=== PATIENT | male | born 1990 | race African-American/Black ===

== ENCOUNTER 2016-05-29 16:32 | Emergency (ER) | payer OTHER ==
[~2016-05-29] VITALS: Ht 180.3 cm; Wt 81.6 kg
[~2016-05-29 16:32] MED LIST: advair INH; albuterol INH
[2016-05-29 16:45] VITALS: BP 127/98
--- NOTE | 2016-05-29 17:22 | ED.ADGEN ---
Past History Past Medical History: No Pertinent History Past Surgical History: No Surgical History Smoking: Cigarettes Alcohol Use: Occasionally Drug Use: None Adult General Chief Complaint Chief Complaint Jaw pain HPI HPI Patient is a 26-year-old -[place] male with jaw fracture with screws and wire in place who presents with sided jaw pain after chewing on steak her to ED arrival. Patient reports feeling as though screws are aching in 2 gumline. Patient is being managed by oral maxillofacial surgeon and has an appointment next week. Denies increased swelling, bruising, fever, difficulty swallowing. Patient is currently out of oxycodone. No other acute symptoms or complaints. Review of Systems Review of Systems Review symptoms as per history of present illness. All other review symptoms are negative. Allergies Allergies Allergies Coded Allergies Type Severity Reaction Last Updated Verified No Known Drug Allergies 10/25/14 No Physical Exam Physical Exam Constitutional: Well developed, well nourished, no acute distress, non-toxic appearance. HENT: Normocephalic, atraumatic, bilateral external ears normal, oropharynx moist, metal screws and plates in place over lower mandible, gingival irritation around posterior screws without bleeding. Eyes: PERRLA, EOMI, conjunctiva normal, no discharge. Neck: Normal range of motion. Extremities: No tenderness, no cyanosis, no clubbing, ROM intact, no edema. [] Neurologic: Alert and oriented X 3, normal motor function, normal sensory function, no focal deficits noted. Psychologic: Affect normal, judgement normal, mood normal. EKG EKG [] Radiology/Procedures Radiology/Procedures [] Impressions: Encounter for evaluation of mandible fracture and hardware. Course & Med Decision Making Course & Med Decision Making Pertinent Labs and Imaging studies reviewed. (See chart for details) [No evidence of facial tissue infection. Pain medication prescribed. Patient instructed to follow strict gluten soft diet with oral maxillofacial follow-up next week as scheduled.] Final Impression Final Impression 1 Jaw fracture Problems: Dragon Disclaimer Dragon Disclaimer This electronic medical record was generated, in whole or in part, using a voice recognition dictation system. ARLINE FLOWERS DO May 29, 2016 17:22
== END 2016-05-29 17:25 | disposition home or self-care (01) ==
LOC: ER 16:32
DX: S02.609A Fracture of mandible, unspecified, initial encounter for closed fracture (principal); F17.210 Nicotine dependence, cigarettes, uncomplicated; X58.XXXA Exposure to other specified factors, initial encounter; Y93.9 Activity, unspecified; Y99.8 Other external cause status; Y92.89 Other specified places as the place of occurrence of the external cause
CPT/HCPCS: 99283

== ENCOUNTER 2017-02-05 18:50 | Emergency (ER) | payer OTHER ==
[~2017-02-05] VITALS: Ht 180.3 cm; Wt 110.2 kg
--- NOTE | 2017-02-05 18:59 | ED.ADGEN ---
Past History Past Medical History: URI, Other Past Surgical History: Other Smoking: Cigarettes Alcohol Use: Occasionally Drug Use: None Adult General Chief Complaint Chief Complaint " I am sick.. been coughing all the time.. sore throat.. running nose. .. fever.. chills. " HPI HPI Patient is a 26 year old male who presents with above hx and complaints of cough, chills, myalgia, malaise.. Pt. normally healthy. Pt. does have productive discolored sputum. No hx immunosuppression. No specific ill contacts. No Travel. . Does not follow with primary. Pt. has been ill the past week to ten days. Review of Systems Review of Systems Constitution Hx. fever or chills [] Eyes: Denies change in visual acuity, redness, or eye pain [] HENT: Hx. of nasal congestion and sore throat [] Respiratory: Hx cough and wheezing. Cardiovascular: No additional information not addressed in HPI [] GI: Denies abdominal pain, nausea, vomiting, bloody stools or diarrhea [] : Denies dysuria or hematuria [] Musculoskeletal: Denies back pain or joint pain [] Integument: Denies rash or skin lesions [] Neurologic: Denies headache, focal weakness or sensory changes [] Endocrine: Denies polyuria or polydipsia [] All other systems were reviewed and found to be within normal limits, except as documented in this note. Family History Family History Noncontributory Current Medications Current Medications Current Medications Medications (Trade) Dose Ordered Sig/Darleen Start Time Stop Time Status Last Admin Dose Admin Albuterol Sulfate (Ventolin Hfa) 2 puff 1X ONCE 02/05/17 19:30 02/05/17 19:31 DC 02/05/17 20:14 2 PUFF Azithromycin (Zithromax) 500 mg 1X ONCE 02/05/17 19:30 02/05/17 19:31 DC 02/05/17 19:30 500 MG Prednisone (Prednisone) 50 mg 1X ONCE 02/05/17 19:30 02/05/17 19:31 DC 02/05/17 20:14 50 MG Allergies Allergies Allergies Coded Allergies Type Severity Reaction Last Updated Verified No Known Drug Allergies 10/25/14 No Physical Exam Physical Exam Constitutional: Well developed, well nourished, mild distress, non-toxic appearance. [] HENT: Normocephalic, atraumatic, bilateral external ears normal, oropharynx moist injected, postnasal drainage, no oral exudates, nose swollen turbinates and rhinorrhea Eyes: PERRLA, EOMI, conjunctiva normal, no discharge. [] Neck: Normal range of motion, no tenderness, supple, no stridor. [] Cardiovascular:Heart rate regular rhythm, no murmur [] Lungs & Thorax: Bilateral breath sounds equal with scattered wheezes occasional episodes of coughing spasm . Abdomen: Bowel sounds normal, soft, no tenderness, no masses, no pulsatile masses. [] Skin: Warm, dry, no erythema, no rash. [] Back: No tenderness, no CVA tenderness. [] Extremities: No tenderness, no cyanosis, no clubbing, ROM intact, no edema. [] Neurologic: Alert and oriented X 3, normal motor function, normal sensory function, no focal deficits noted. [] Psychologic: Affect normal, judgement normal, mood normal. [] Current Patient Data Vital Signs Vital Signs Date Time Temp Pulse Resp B/P (MAP) Pulse Ox O2 Delivery O2 Flow Rate FiO2 02/05/17 19:02 97.6 95 20 135/75 (95) 95 Room Air EKG EKG [] Radiology/Procedures Radiology/Procedures [] Course & Med Decision Making Course & Med Decision Making Pertinent Labs and Imaging studies reviewed. (See chart for details). Gargle with Listerine 4 times a day. Take Benadryl 25-50 mg 4 times a day for drainage and cough. Take prednisone 50 mg a day for 5 days. Use MDI 2 puffs 4 times a day. Take Zithromax 250 mg a day for 5 days. Follow up primary care. Push fluids. Return if any concerns. [] Final Impression Final Impression 1. URI 2. Bronchitis[] Problems: Dragon Disclaimer Dragon Disclaimer This electronic medical record was generated, in whole or in part, using a voice recognition dictation system. GABRIELLA ELAINE MD Feb 05, 2017 18:59
[2017-02-05 19:02] VITALS: BP 135/75
[2017-02-05] MEDS ORDERED: PRED50TA PO (19:26)
[2017-02-05] MEDS ORDERED: AZIT250T PO (19:26)
[2017-02-05] MEDS ORDERED: AZITHROMYCIN 250 MG TABLET. PO ONE (19:30)
[2017-02-05] MEDS ORDERED: ALBUTEROL SULFATE 8GM INHALER. INH ONE (19:30)
[2017-02-05] MEDS ORDERED: predniSONE 10 MG TABLET PO ONE (19:30)
== END 2017-02-05 20:19 | disposition home or self-care (01) ==
LOC: ER 18:50
DX: J40 Bronchitis, not specified as acute or chronic (principal); J06.9 Acute upper respiratory infection, unspecified; F17.210 Nicotine dependence, cigarettes, uncomplicated
CPT/HCPCS: 94640; 99283; J0456; J7512; J7613

== ENCOUNTER 2018-04-12 15:34 | Emergency (ER) | payer OTHER ==
[~2018-04-12] VITALS: Ht 180.3 cm; Wt 108.9 kg
[~2018-04-12 15:34] MED LIST changes: +AZIT250T PO; +PRED50TA PO
[2018-04-12 15:38] VITALS: BP 123/98
[2018-04-12] MEDS ORDERED: AMOX500T PO (15:54)
[2018-04-12] MEDS ORDERED: MELO7.5T29 PO (15:54)
[2018-04-12] MEDS ORDERED: D-ME118S2 PO (15:54)
--- NOTE | 2018-04-12 15:55 | PHYS DOC ---
Past History Past Medical History: Asthma, Other (reports traumatic brain injury) Past Surgical History: No Surgical History Smoking: Cigarettes Alcohol Use: None Drug Use: None Adult General Chief Complaint Chief Complaint: DENTAL PROBLEM HPI HPI Patient is a 27year old male who presents with R upper tooth pain. The tooth broke off earlier today. He has taken no pain medicine. Nothing seems to make the tooth pain better or worse. He is also complaining of a sore throat that is been present for the past 4 days along with nasal congestion and a cough present for the same period of time. No fever. Patient reports that his asthma is under control with his medicines. He has not seen a doctor, he does not recall who his doctor is because of history of traumatic brain injury.[] Review of Systems Review of Systems Constitutional: Denies fever or chills [] Eyes: Denies change in visual acuity, redness, or eye pain [] HENT: See history of present illness[] Respiratory: Denies shortness of breath, reports cough [] Cardiovascular: No chest pain or palpitations[] GI: Denies abdominal pain, nausea, vomiting, bloody stools or diarrhea [] : Denies dysuria or hematuria [] Musculoskeletal: Denies back pain or joint pain [] Integument: Denies rash or skin lesions [] Neurologic: Denies headache, focal weakness or sensory changes [] Endocrine: Denies polyuria or polydipsia [] All other systems were reviewed and found to be within normal limits, except as documented in this note. Allergies Allergies Allergies Coded Allergies Type Severity Reaction Last Updated Verified No Known Drug Allergies 10/25/14 No Physical Exam Physical Exam Constitutional: Well developed, well nourished, no acute distress, non-toxic appearance. [] HENT: Normocephalic, atraumatic, bilateral external ears normal, oropharynx moist, no oral exudates, nose with clear rhinorrhea. Patient's tooth #18, there is tenderness to percussion, no drainable abscess. Do not see any bleeding from the tooth.. [] Eyes: PERRLA, EOMI, conjunctiva normal, no discharge. [] Neck: Normal range of motion, no tenderness, supple, no stridor. [] Cardiovascular:Heart rate regular rhythm, no murmur [] Lungs & Thorax: Bilateral breath sounds clear to auscultation [] Abdomen: Bowel sounds normal, soft, no tenderness, no masses, no pulsatile masses. [] Skin: Warm, dry, no erythema, no rash. [] Back: No tenderness, no CVA tenderness. [] Extremities: No tenderness, no cyanosis, no clubbing, ROM intact, no edema. [] Neurologic: Alert and oriented X 3, normal motor function, normal sensory function, no focal deficits noted. [] Psychologic: Affect normal, judgement normal, mood normal. [] Current Patient Data Vital Signs Vital Signs Date Time Temp Pulse Resp B/P (MAP) Pulse Ox O2 Delivery O2 Flow Rate FiO2 04/12/18 15:38 97.9 75 20 99 Room Air EKG EKG [] Radiology/Procedures Radiology/Procedures [] Course & Med Decision Making Course & Med Decision Making Pertinent Labs and Imaging studies reviewed. (See chart for details) Medical decision making: Patient appears to have some dental discomfort, possibly consistent with periapical abscess for which she will be treated with oral outpatient antibiotics. There is no tonsillar exudate however the treatment for the periapical abscess we'll cover for strep pharyngitis. And is not hypoxic, lungs were clear with no egophony, no tactile fremitus, so doubt pneumonia.[] Dragon Disclaimer Dragon Disclaimer This electronic medical record was generated, in whole or in part, using a voice recognition dictation system. Departure Departure: Impression: Primary Impression: Pain, dental Additional Impressions: Pharyngitis Upper respiratory infection Disposition: 01 HOME, SELF-CARE Condition: IMPROVED Referrals: PCP,NO (PCP) Patient Instructions: Dental Fracture, Upper Respiratory Infection, Adult, Viral and Bacterial Pharyngitis Additional Instructions: Drink plenty of fluids. Follow-up with your regular doctor in 2 days. If you do not have a regular doctor, list of local clinics will be given to you. Return to the ER if worsening pain, difficulty breathing, or any other concerns. Scripts D-Methorphan Hb/Prometh Hcl (PROMETHAZINE-DM SYRUP) 118 Ml Syrup 5 ML PO PRN Q4HRS for CONGESTION, #120 ML Prov: AYAN LEROY DO 04/12/18 Meloxicam (MELOXICAM) 7.5 Mg Tablet 7.5 MG PO DAILY for PAIN, #20 TAB Prov: AYAN LEROY DO 04/12/18 Amoxicillin (AMOXICILLIN) 500 Mg Tablet 1 TAB PO TID for dental pain, #30 TAB Prov: AYAN LEROY DO 04/12/18 Problem Qualifiers Additional Impressions: Pharyngitis Pharyngitis/tonsillitis etiology: unspecified etiology Qualified Codes: J02.9 - Acute pharyngitis, unspecified Upper respiratory infection URI type: unspecified URI Qualified Codes: J06.9 - Acute upper respiratory infection, unspecified AAYN LEROY DO Apr 12, 2018 15:54
== END 2018-04-12 15:58 | disposition home or self-care (01) ==
LOC: ER 15:34
DX: K08.89 Other specified disorders of teeth and supporting structures (principal); J02.9 Acute pharyngitis, unspecified; J45.909 Unspecified asthma, uncomplicated; F17.210 Nicotine dependence, cigarettes, uncomplicated; Z87.820 Personal history of traumatic brain injury
CPT/HCPCS: 99283

== ENCOUNTER 2018-08-21 12:42 | Emergency (ER) | payer OTHER ==
[~2018-08-21] VITALS: Ht 180.3 cm; Wt 104.3 kg
[~2018-08-21 12:42] MED LIST changes: +AMOX500T PO; +D-ME118S2 PO; +MELO7.5T29 PO
[2018-08-21 12:50] VITALS: BP 138/78
[2018-08-21] MEDS ORDERED: BENZ100C PO (13:33)
[2018-08-21] MEDS ORDERED: D-ME118S2 PO (13:33)
[2018-08-21] MEDS ORDERED: ALBU2.5V14 NEB (13:33)
--- NOTE | 2018-08-21 13:33 | PHYS DOC ---
Past History Past Medical History: Asthma, Bronchitis, Hypertension, Pneumonia Past Surgical History: Other Smoking: Cigarettes Alcohol Use: None Drug Use: None Adult General Chief Complaint Chief Complaint: SORE THROAT HPI HPI Patient is a 28-year-old male presents complaining of a cough. He was recently admitted and subsequently discharged from the hospital due to pneumonia. He was released 3 days ago. He reports having run out of his promethazine cough syrup. Also needing more of his nebulized breathing treatment to help with the cough. He reports that the medicines do improve the cough. Being out of them makes it worse. Symptoms are mild to moderate. Denies any fever. He finished his antibiotics today.[] Review of Systems Review of Systems Constitutional: Denies fever or chills [] Eyes: Denies change in visual acuity, redness, or eye pain [] HENT: Denies nasal congestion or ear pain[] Respiratory: Denies shortness of breath, see history of present illness [] Cardiovascular: No chest pain or palpitations[] GI: Denies abdominal pain, nausea, vomiting, bloody stools or diarrhea [] : Denies dysuria or hematuria [] Musculoskeletal: Denies back pain or joint pain [] Integument: Denies rash or skin lesions [] Neurologic: Denies headache, focal weakness or sensory changes [] Endocrine: Denies polyuria or polydipsia [] All other systems were reviewed and found to be within normal limits, except as documented in this note. Allergies Allergies Allergies Coded Allergies Type Severity Reaction Last Updated Verified No Known Drug Allergies 10/25/14 No Physical Exam Physical Exam Constitutional: Well developed, well nourished, no acute distress, non-toxic appearance. [] HENT: Normocephalic, atraumatic, bilateral external ears normal, oropharynx moist, no oral exudates, nose normal. [] Eyes: PERRLA, EOMI, conjunctiva normal, no discharge. [] Neck: Normal range of motion, no tenderness, supple, no stridor. [] Cardiovascular:Heart rate regular rhythm, no murmur [] Lungs & Thorax: Bilateral breath sounds clear to auscultation [] Abdomen: Bowel sounds normal, soft, no tenderness, no masses, no pulsatile masses. [] Skin: Warm, dry, no erythema, no rash. [] Back: No tenderness, no CVA tenderness. [] Extremities: No tenderness, no cyanosis, no clubbing, ROM intact, no edema. [] Neurologic: Alert and oriented X 3, normal motor function, normal sensory function, no focal deficits noted. [] Psychologic: Affect normal, judgement normal, mood normal. [] Current Patient Data Vital Signs Vital Signs Date Time Temp Pulse Resp B/P (MAP) Pulse Ox O2 Delivery O2 Flow Rate FiO2 08/21/18 12:50 97.5 98 18 98 Room Air EKG EKG [] Radiology/Procedures Radiology/Procedures [] Course & Med Decision Making Course & Med Decision Making Pertinent Labs and Imaging studies reviewed. (See chart for details) Medical decision making: I believe this to be a post-bronchitic/post pneumonic cough. Do not see any evidence of recurrence of infection at this time. We will treat with appropriate medicines to quiet down the cough. There is no evidence of hypoxia.[] Dragon Disclaimer Dragon Disclaimer This electronic medical record was generated, in whole or in part, using a voice recognition dictation system. Departure Departure: Impression: Primary Impression: Cough Disposition: 01 HOME, SELF-CARE Condition: IMPROVED Referrals: PCP,NO (PCP) Patient Instructions: Cough, Adult Additional Instructions: Drink plenty of fluids. Stop smoking if you have not yet done so. Follow-up with your regular doctor in 2 days. If you do not have regular doctor a list of local clinics will be provided for you. Return to the ER if worsening difficulty breathing or any other concerns. Scripts Benzonatate (TESSALON PERLE) 100 Mg Capsule 1 CAP PO TID for cough, #30 CAP Prov: AYAN LEROY DO 08/21/18 D-Methorphan Hb/Prometh Hcl (PROMETHAZINE-DM SYRUP) 118 Ml Syrup 5 ML PO PRN Q4HRS for CONGESTION, #120 ML Prov: AYAN LEROY DO 08/21/18 Albuterol Sulfate (ALBUTEROL SULFATE CONC NEB SOLN) 2.5 Mg/0.5 Ml Vial.neb 1 VIAL NEB Q6HRS for shortness of breath, #60 VIAL 0 Refills Prov: AYAN LEROY DO 08/21/18 AYAN LEROY DO Aug 21, 2018 13:33
== END 2018-08-21 13:50 | disposition home or self-care (01) ==
LOC: ER 12:42 → EDBD 12:42 → ER 13:50
DX: R05 Cough (principal); J45.909 Unspecified asthma, uncomplicated; I10 Essential (primary) hypertension; F17.210 Nicotine dependence, cigarettes, uncomplicated
CPT/HCPCS: 99283

== ENCOUNTER 2019-12-10 15:55 | Emergency (ER) | payer OTHER ==
[~2019-12-10] VITALS: Ht 180.3 cm; Wt 99.6 kg
[2019-12-10 15:55] VITALS: BP 143/113
[~2019-12-10 15:55] MED LIST changes: +ALBU2.5V14 NEB; +BENZ100C PO; -D-ME118S2 PO; +PROM118S10 PO
[2019-12-10] MEDS ORDERED: GUAI118L13 PO (17:00)
[2019-12-10] MEDS ORDERED: PRED-220 PO (17:00)
--- NOTE | 2019-12-10 17:00 | PHYS DOC ---
Past History Past Medical History: Asthma, Bronchitis, Hypertension, Pneumonia Past Surgical History: Other Smoking: Cigarettes Alcohol Use: None Drug Use: None General Adult EDM: Chief Complaint: COUGH HPI: HPI: 29-year-old male presents with cough. He has had nasal congestion and cough for at least last 3 days. The patient has moderate persistent asthma at baseline. He has been taking his medication but still has some mild shortness of breath. He has been tested for COVID-19 and was negative. He had pneumonia on the right side about 8 months ago. He typically gets bronchitis and/or an asthma exacerbation around this time of year. He just wants to get back to work. He does not believe he is had a fever at home. He has no other complaints at this time. Review of Systems: Review of Systems: Constitutional: Denies fever or chills Eyes: Denies change in visual acuity HENT: nasal congestion and sore throat Respiratory: Cough with mild shortness of breath Cardiovascular: Denies chest pain or edema GI: Denies abdominal pain, nausea, vomiting, bloody stools or diarrhea : Denies dysuria Musculoskeletal: Denies back pain or joint pain Integument: Denies rash Neurologic: Denies headache, focal weakness or sensory changes Endocrine: Denies polyuria or polydipsia Lymphatic: Denies swollen glands Psychiatric: Denies depression or anxiety Heart Score: Risk Factors: Risk Factors: DM, Current or recent (<one month) smoker, HTN, HLP, family history of CAD, obesity. Risk Scores: Score 0 - 3: 2.5% MACE over next 6 weeks - Discharge Home Score 4 - 6: 20.3% MACE over next 6 weeks - Admit for Clinical Observation Score 7 - 10: 72.7% MACE over next 6 weeks - Early Invasive Strategies Allergies: Allergies: Allergies Coded Allergies Type Severity Reaction Last Updated Verified No Known Drug Allergies 10/25/14 No Physical Exam: PE: Constitutional: Well developed, well nourished, no acute distress, non-toxic appearance. [] HENT: Normocephalic, atraumatic, bilateral external ears normal, oropharynx erythematous, no oral exudates, nose thick congestion. [] Eyes: PERRLA, EOMI, conjunctiva normal, no discharge. [] Neck: Normal range of motion, no tenderness, supple, no stridor. [] Cardiovascular:Heart rate regular rhythm, no murmur [] Lungs & Thorax: Bilateral end expiratory wheeze at the bases [] Abdomen: Bowel sounds normal, soft, no tenderness, no masses, no pulsatile masses. [] Skin: Warm, dry, no erythema, no rash. [] Back: No tenderness, no CVA tenderness. [] Extremities: No tenderness, no cyanosis, no clubbing, ROM intact, no edema. [] Neurologic: Alert and oriented X 3, normal motor function, normal sensory function, no focal deficits noted. [] Psychologic: Affect normal, judgement normal, mood normal. [] Current Patient Data: Vital Signs: Vital Signs Date Time Temp Pulse Resp B/P (MAP) Pulse Ox O2 Delivery O2 Flow Rate FiO2 12/10/19 15:55 97.9 80 26 143/113 (123) 97 Room Air EKG: EKG: [] Radiology/Procedures: Radiology/Procedures: [] Course & Med Decision Making: Course & Med Decision Making Pertinent Labs and Imaging studies reviewed. (See chart for details) The patient's chest x-ray is unremarkable. I think the patient is having an asthma exacerbation on top of a viral URI. I will treat him with guaifenesin with codeine and prednisone. I do not see signs of infection warranting antibiotics. He is stable for discharge at this time. [] Dragon Disclaimer: Tyler Disclaimer: This electronic medical record was generated, in whole or in part, using a voice recognition dictation system. Departure Departure: Impression: Primary Impression: Asthma exacerbation Qualified Codes: J45.41 - Moderate persistent asthma with (acute) exacerbation Additional Impression: Viral URI with cough Disposition: HOME/RESIDENCE PRIOR TO ADM Condition: STABLE Referrals: HARDY STEPHENS (PCP) Patient Instructions: Asthma, Adult, [id number] Scripts Prednisone (PREDNISONE) 10 Mg Tablet 50 MG PO DAILY for asthma for 3 Days, #15 TAB Prov: ARLINE MENSAH DO 12/10/19 Guaifenesin/Codeine Phosphate (GUAIFENESIN-CODEINE SYRUP) 118 Ml Liquid 5 ML PO Q6HRS PRN for COUGH, #120 ML Prov: ARLINE MENSAH DO 12/10/19 Justification of Admission: Justification of Admission: Justification of Admission Dx: N/A ARLINE MENSAH DO Dec 10, 2019 17:00
--- NOTE | 2019-12-10 17:16 | RAD ---
EXAM: CHEST PA LATERAL 12/10/2019 4:44 PM CLINICAL INDICATION: Cough COMPARISON: Chest radiograph 06/26/2014 TECHNIQUE: PA and lateral views of the chest FINDINGS: The heart and mediastinum are normal. Lungs are well-expanded and clear. No consolidation, pleural effusion, or pneumothorax. Pulmonary vascularity is normal. The thoracic skeleton is intact. IMPRESSION: Normal chest radiograph. Electronically signed by: Urmila Villanueva MD (12/10/2019 5:12 PM) [id number]
== END 2019-12-10 18:00 | disposition home or self-care (01) ==
LOC: ER 15:55
DX: J45.41 Moderate persistent asthma with (acute) exacerbation (principal); J06.9 Acute upper respiratory infection, unspecified; I10 Essential (primary) hypertension; F17.210 Nicotine dependence, cigarettes, uncomplicated
CPT/HCPCS: 71046; 99283

== ENCOUNTER 2020-01-03 20:14 | Emergency (ER) | payer OTHER ==
[~2020-01-03] VITALS: Ht 180.3 cm; Wt 86.0 kg
[~2020-01-03 20:14] MED LIST changes: +GUAI118L13 PO; +PRED-220 PO
[2020-01-03] MEDS ORDERED: IPRATRPIUM/ALBUTEROL 0.5/2.5MG 3 ML NEBU. NEB ONE (20:45)
--- NOTE | 2020-01-03 20:50 | PHYS DOC ---
Past History Past Medical History: Asthma (MOIRA PHILIPPE APRN) Past Surgical History: Other (MOIRA PHILIPPE APRN) Smoking: Cigarettes Alcohol Use: None Drug Use: None (MOIRA PHILIPPE APRN) Adult General Chief Complaint Chief Complaint: DENTAL PROBLEM HPI HPI Patient is a 29-year-old male patient presenting to the ED today complaining of right lower gum dental pain that has been going on follow-up 3 days. Patient denies any fever or trismus. He reports he broke broken tooth. Patient is also complaining of a cough from his asthma and is requesting a breathing treatment as well as liquid promethazine. Is also requesting something stronger for his tooth pain stating hydrocodone does not help him. (MOIRA PHILIPPE APRN) Review of Systems Review of Systems Constitutional: Denies fever or chills [] Eyes: Denies change in visual acuity, redness, or eye pain [] HENT: Reports dental pain. Denies nasal congestion or sore throat [] Respiratory: Reports cough from asthma, denies shortness of breath [] Musculoskeletal: Denies back pain or joint pain [] Integument: Denies rash or skin lesions [] Neurologic: Denies headache, focal weakness or sensory changes [] All other systems were reviewed and found to be within normal limits, except as documented in this note. (MOIRA PHILIPPE APRN) Current Medications Current Medications Current Medications Medications (Trade) Dose Ordered Sig/Darleen Start Time Stop Time Status Last Admin Dose Admin Albuterol/ Ipratropium (Duoneb) 3 ml 1X ONCE 01/03/20 20:45 01/03/20 20:46 UNV (MOIRA PHILIPPE APRN) Allergies Allergies Allergies Coded Allergies Type Severity Reaction Last Updated Verified No Known Drug Allergies 10/25/14 No (MOIRA PHILIPPE APRN) Physical Exam Physical Exam Constitutional: Well developed, well nourished, no acute distress, non-toxic appearance. [] HENT: Normocephalic, atraumatic, bilateral external ears normal, oropharynx moist, no oral exudates, nose normal. [] No obvious broken tooth noted, tooth #3 the patient is concerned about barely has any concerning issues. He does have a feeling on tooth #2. Eyes: PERRLA, EOMI, conjunctiva normal, no discharge. [] Neck: Normal range of motion, no tenderness, supple, no stridor. [] Cardiovascular:Heart rate regular rhythm, no murmur [] Lungs & Thorax: Bilateral breath sounds clear to auscultation [] Abdomen: Bowel sounds normal, soft, no tenderness, no masses, no pulsatile masses. [] Skin: Warm, dry, no erythema, no rash. [] Back: No tenderness, no CVA tenderness. [] Extremities: No tenderness, no cyanosis, no clubbing, ROM intact, no edema. [] Neurologic: Alert and oriented X 3, normal motor function, normal sensory function, no focal deficits noted. [] Psychologic: Affect normal, judgement normal, mood normal. [] (MOIRA PHILIPPE APRN) Current Patient Data Vital Signs Vital Signs Date Time Temp Pulse Resp B/P (MAP) Pulse Ox O2 Delivery O2 Flow Rate FiO2 01/03/20 20:18 96.5 86 18 130/99 (109) 97 Room Air (MOIRA PHILIPPE APRN) EKG EKG [] (MOIRA PHILIPPE APRN) Radiology/Procedures Radiology/Procedures [] (MOIRA PHILIPPE APRN) Heart Score Risk Factors: Risk Factors: DM, Current or recent (<one month) smoker, HTN, HLP, family history of CAD, obesity. Risk Scores: Risk Factors: DM, Current or recent (<one month) smoker, HTN, HLP, family history of CAD, obesity. (MOIRA PHILIPPE APRN) Course & Med Decision Making Course & Med Decision Making Pertinent Labs and Imaging studies reviewed. (See chart for details) This is a ten 9-year-old male patient presenting to the ED today complaining of dental pain as well as a cough from his asthma. Patient has spent an incredible amount of time trying to negotiate for some pain medicine as well as cough syrup. Informed patient he cannot have prescription cough syrup as well as prescription pain medicine. Recommended Ramy Rothman, he states he has dose under not working. He was requesting promethazine liquid, informed him he can take guaifenesin [id number]. He was instructed to follow-up with his own dentist (MOIRA PHILIPPE APRN) Course & Med Decision Making 29 year old male (ARLINE MENSAH DO) Tyler Disclaimer Dragon Disclaimer This electronic medical record was generated, in whole or in part, using a voice recognition dictation system. (MOIRA PHILIPPE APRN) Attending Co-Sign The patient was seen and interviewed as well as examined at the bedside. The chart was reviewed. The case was discussed. Agree with the plan of care. (ARLINE MENSAH DO) Departure Departure: Impression: Primary Impression: Cough Additional Impression: Pain, dental Disposition: 01 DC HOME SELF CARE/HOMELESS Condition: STABLE Referrals: HARDY STEPHENS (PCP) follow up as soon as possible Patient Instructions: Cough, Adult, Pyal-lh-Ostg, Dental Pain Additional Instructions: You were evaluated in the emergency room for cough. You can take tgjr-djw-hrvecyp cough medicines as needed. Please follow-up with your dentist as soon as possible dental pain. Scripts Benzonatate (BENZONATATE) 100 Mg Capsule 1 CAP PO TID, #30 CAP Prov: MOIRA PHILIPPE APRN 01/03/20 Naproxen (NAPROXEN) 500 Mg Tablet.dr 1 TAB PO BID, #60 TAB 1 Refill Prov: MOIRA PHILIPPE APRN 01/03/20 Amoxicillin (AMOXICILLIN) 500 Mg Tablet 1 TAB PO BID, #20 TAB Prov: MOIRA PHILIPPE APRN 20 Hydrocodone/Acetaminophen (Hydrocodone-Acetamin 5-325 mg) 1 Each Tablet 1 EACH PO Q6-8HRS PRN for PAIN, #6 TAB Prov: MOIRA PHILIPPE APRN 01/03/20 Problem Qualifiers MOIRA PHILIPPE APRN Jan 03, 2020 20:50 ARLINE MENSAH DO Jan 04, 2020 00:22
[2020-01-03] MEDS ORDERED: HYDR-2759 PO (20:57)
[2020-01-03] MEDS ORDERED: NAPR500T8 PO (20:57)
[2020-01-03] MEDS ORDERED: BENZ-8 PO (20:57)
[2020-01-03] MEDS ORDERED: AMOX500T PO (20:57)
[2020-01-03 21:00] VITALS: BP 128/92
[2020-01-03] MEDS ORDERED: ALBUTEROL SULFATE 8GM INHALER. INH ONE (21:30)
== END 2020-01-03 21:07 | disposition home or self-care (01) ==
LOC: ER 20:14
DX: K08.89 Other specified disorders of teeth and supporting structures (principal); R05 Cough; J45.909 Unspecified asthma, uncomplicated; F17.210 Nicotine dependence, cigarettes, uncomplicated; Z98.890 Other specified postprocedural states
CPT/HCPCS: 94640; 99283; J7613

== ENCOUNTER 2020-08-27 10:32 | Emergency (ER) | payer OTHER ==
[~2020-08-27] VITALS: Ht 180.3 cm; Wt 98.1 kg
[~2020-08-27 10:32] MED LIST changes: +BENZ-8 PO; +HYDR-2759 PO; +NAPR500T8 PO
[2020-08-27 10:40] VITALS: BP 148/78
[2020-08-27] MEDS ORDERED: CLIN300C9 PO (11:06)
[2020-08-27] MEDS ORDERED: HYDR-2759 PO (11:06)
--- NOTE | 2020-08-27 11:06 | PHYS DOC ---
Past History Past Medical History: Asthma Past Surgical History: Other Additional Past Surgical Histo: JAW REPAIR Smoking: Cigarettes Alcohol Use: None Drug Use: None General Adult EDM: Chief Complaint: DENTAL PROBLEM HPI: HPI: 30-year-old male presents with right lower dental pain and swelling. The patient has had issues with this tooth in the past. There is a section of it that is cracked and he has got an infection that resolved with antibiotics. He feels like the infection has come back as he has similar pain symptoms and swelling. He is having difficulty eating and sleeping. Nothing seems to make it better. He is without able to afford a dentist to have the tooth removed. He denies fever or chills. He has no other complaints at this time. Review of Systems: Review of Systems: Constitutional: Denies fever or chills Eyes: Denies change in visual acuity HENT: Dental pain Respiratory: Denies cough or shortness of breath Cardiovascular: Denies chest pain or edema GI: Denies abdominal pain, nausea, vomiting, bloody stools or diarrhea : Denies dysuria Musculoskeletal: Denies back pain or joint pain Integument: Denies rash Neurologic: Denies headache, focal weakness or sensory changes Endocrine: Denies polyuria or polydipsia Lymphatic: Denies swollen glands Psychiatric: Denies depression or anxiety Allergies: Allergies: Allergies Coded Allergies Type Severity Reaction Last Updated Verified No Known Drug Allergies 10/25/14 No Physical Exam: PE: Constitutional: Well developed, well nourished, no acute distress, non-toxic appearance. [] HENT: Normocephalic, atraumatic, bilateral external ears normal, oropharynx moist, no oral exudates, nose normal. Cracked tooth #30 with surrounding edema. No obvious abscess [] Eyes: PERRLA, EOMI, conjunctiva normal, no discharge. [] Neck: Normal range of motion, no tenderness, supple, no stridor. [] Cardiovascular: Heart rate regular rhythm, no murmur [] Lungs & Thorax: Bilateral breath sounds clear to auscultation [] Abdomen: Bowel sounds normal, soft, no tenderness, no masses, no pulsatile masses. [] Skin: Warm, dry, no erythema, no rash. [] Back: No tenderness, no CVA tenderness. [] Extremities: No tenderness, no cyanosis, no clubbing, ROM intact, no edema. [] Neurologic: Alert and oriented X 3, normal motor function, normal sensory function, no focal deficits noted. [] Psychologic: Affect normal, judgement normal, mood normal. [] Current Patient Data: Vital Signs: Vital Signs Date Time Temp Pulse Resp B/P (MAP) Pulse Ox O2 Delivery O2 Flow Rate FiO2 08/27/20 10:40 97.7 84 20 148/78 (101) 98 Room Air EKG: EKG: [] Radiology/Procedures: Radiology/Procedures: [] Heart Score: C/O Chest Pain: N/A Risk Factors: Risk Factors: DM, Current or recent (<one month) smoker, HTN, HLP, family history of CAD, obesity. Risk Scores: Score 0 - 3: 2.5% MACE over next 6 weeks - Discharge Home Score 4 - 6: 20.3% MACE over next 6 weeks - Admit for Clinical Observation Score 7 - 10: 72.7% MACE over next 6 weeks - Early Invasive Strategies Course & Med Decision Making: Course & Med Decision Making Pertinent Labs and Imaging studies reviewed. (See chart for details) The patient believes he was on amoxicillin last time. I will place him on clindamycin this time for 7 days. I checked the narcotic tracking database and the patient last got medication in June as he told me from his PCP. I will give him a short course of [place] 5/325. He is stable for discharge at this time. [] Tyler Disclaimer: Tyler Disclaimer: This electronic medical record was generated, in whole or in part, using a voice recognition dictation system. Departure Departure: Impression: Primary Impression: Pain, dental Additional Impression: Infected tooth Disposition: HOME / SELF CARE / HOMELESS Condition: STABLE Referrals: HARDY STEPHENS (PCP) Patient Instructions: Dental Pain, Ncfv-al-Lgas Scripts Clindamycin Hcl (CLINDAMYCIN HCL) 300 Mg Capsule 1 CAP PO TID for dental infection, #21 CAP Prov: ARLINE MENSAH DO 08/27/20 Hydrocodone/Acetaminophen (Hydrocodone-Acetamin 5-325 mg) 1 Each Tablet 1 EACH PO Q4-6HRS PRN for PAIN, #10 TAB Prov: ARLINE MENSAH DO 08/27/20 ARLINE MENSAH DO Aug 27, 2020 11:06
[2020-08-27] MEDS ORDERED: HYDROcodone/APAP 5/325MG 1 TAB TABLET PO ONE (11:15)
== END 2020-08-27 11:20 | disposition home or self-care (01) ==
LOC: ER 10:32
DX: K04.7 Periapical abscess without sinus (principal); K03.81 Cracked tooth; J45.909 Unspecified asthma, uncomplicated; F17.210 Nicotine dependence, cigarettes, uncomplicated
CPT/HCPCS: 99283

== ENCOUNTER 2020-09-19 12:17 | Emergency (ER) | payer OTHER ==
[~2020-09-19] VITALS: Ht 180.3 cm; Wt 98.1 kg
[~2020-09-19 12:17] MED LIST changes: +CLIN300C9 PO
[2020-09-19 12:31] VITALS: BP 149/102
--- NOTE | 2020-09-19 12:57 | PHYS DOC ---
Past History Past Medical History: Asthma Past Surgical History: Other Additional Past Surgical Histo: JAW REPAIR Smoking: Cigarettes Alcohol Use: None Drug Use: None General Adult EDM: Chief Complaint: DENTAL PROBLEM HPI: HPI: 30 yo F PMH asthma and left mandibular fracture in 2017, presents to the ed with c/o right lower jaw pain stating he was chewing last night when he heard a pop and states "Is it broken?" Denies any blunt injury to his jaw, no head/neck/facial injury or LOC. States he was seen in [place] at dental office and surgery was not an option given prior fracture? EMR was reviewed, CT maxillofaxial in 2017 w/nondisplaced left mandibular ramus fracture. Patient was seen in the ED on August 27 for similar pain, concerning for infection. Was treated with clindamycin for 7 days and [place]. ED note reports patient is unable to afford dental treatment. Review of Systems: Review of Systems: Constitutional: Denies fever or chills Eyes: Denies change in visual acuity HENT: Denies nasal congestion or sore throat Respiratory: Denies cough or shortness of breath Cardiovascular: Denies chest pain or edema GI: Denies nausea, vomiting, Musculoskeletal: Denies back pain or joint pain Integument: Denies rash or diaphoresis Neurologic: Denies headache or neck pain Psychiatric: Denies depression or anxiety Allergies: Allergies: Allergies Coded Allergies Type Severity Reaction Last Updated Verified No Known Drug Allergies 10/25/14 No Physical Exam: PE: Constitutional: Well developed, well nourished, no acute distress, non-toxic appearance. HENT: Normocephalic, atraumatic, tooth #38 with more than 50% dental decay-no bleeding or pulp visualized/no open socket (consider bunn tpe 2 fracture), able to bear down and hold tongue depressor between left and right jaw, no malocclusion, no palpable clicks at either tmj, no tongue elevation, opens mouth wide w/o distress, no tongue elevation or speech changes, no drooling, no submental pain, no cheek or soft tissue swelling Eyes: EOMI, conjunctiva normal, no discharge. Neck: Normal range of motion, supple, no nuchal rigidity or meningismus Cardiovascular: S1/2 present, regular rhythm Lungs & Thorax: Speaking in full sentences, bilateral equal chest rise, no tachypnea or increased work of breathing, no spitting, airway protected Skin: Warm, dry, no erythema, no rash. [] Extremities: No tenderness, no cyanosis, Neurologic: Alert and oriented X 3, normal motor function, normal sensory function, no focal deficits noted. [] Psychologic: Affect normal, judgement normal, mood normal. [] Current Patient Data: Vital Signs: Vital Signs Date Time Temp Pulse Resp B/P (MAP) Pulse Ox O2 Delivery O2 Flow Rate FiO2 09/19/20 12:31 88 18 149/102 98 EKG: EKG: [] Radiology/Procedures: Radiology/Procedures: IMAGING REPORT Signed PATIENT: DOC ROD V ACCOUNT: [id number] : 1990 LOCATION: ER AGE: 30 SEX: M EXAM STATUS: REG ER ORD. PHYSICIAN: QI KNOX DO REASON: right lower jaw pain, h/o fracture 2016 PROCEDURE: CT MAXILLOFACIAL WO CONTRAST Exam performed: CT maxillofacial. Indication: Right lower abdominal pain, history of fractured 2017. Date of service: 09/19/2020,Comparison: CT head and maxillofacial from 05/31/2016 Technique: Contiguous acquisitions are obtained through the maxillofacial structures without IV contrast. Coronal reformatted images are obtained and reviewed. Findings: There is normal aeration of both frontal, ethmoid, maxillary and sphenoid sinuses. No air-fluid level, mucoperiosteal thickening or mucus retention cyst is identified. The bony orbital margins and the intraocular contents are bilaterally symmetric and unremarkable. Both ostiomeatal complexes are preserved. Nasal bones and zygomatic arches are preserved.No abnormal fluid collections or hematoma formation seen. The visualized portion of the brain is normal. Impression: 1. No acute abnormality seen. Previously seen nondisplaced fractures left ramus of mandible is no longer visualized PQRS Compliance Statement: One or more of the following individualized dose reduction techniques were utilized for this examination: 1. Automated exposure control 2. Adjustment of the mA and/or kV according to patient size 3. Use of iterative reconstruction technique Electronically signed by: Mariaelena Reynolds MD (09/19/2020 2:23 PM) [facility] DICTATED AND SIGNED BY: MARIAELENA REYNOLDS MD DATE: 09/19/20 1410 CC: HARDY STEPHENS; ABILIOQI DO ~MTH0 0 Heart Score: C/O Chest Pain: No Risk Factors: Risk Factors: DM, Current or recent (<one month) smoker, HTN, HLP, family history of CAD, obesity. Risk Scores: Score 0 - 3: 2.5% MACE over next 6 weeks - Discharge Home Score 4 - 6: 20.3% MACE over next 6 weeks - Admit for Clinical Observation Score 7 - 10: 72.7% MACE over next 6 weeks - Early Invasive Strategies Course & Med Decision Making: Course & Med Decision Making Pertinent Labs and Imaging studies reviewed. (See chart for details) Concern for chronic dental plain, similar symptoms as seen in ED on August 27. Patient with large dental annette over right lower first molar, tooth #30, no pulp visualized, no active bleeding. No speech changes, tongue elevated or active distress. Will treat with antibiotics, Orajel and recommend urgent dental follow-up. Patient states he has established dental care with [place] [facility]. On reevaluation patient requesting stronger pain medication "other than, tylenol, motrin, [id number]-vet-[id number]," medications. Pt declines orajel or hurricane spray and IM toradol in ed. Myself and charge nurse educated on analgesia options, that narcotics are not indicated for chronic dental pain, pt continued to request tramadol (was prescribed ten tablets of hydrocodone 3 weeks ago). Pt states "I could just go to my family physician for tramadol then?" I referred patient to primary care physician for narcotic medication. CT imaging with no signs of acute trauma. Patient afebrile, hemodynamically stable, speaking full sentences with no jaw malocclusion. Will discharge home with strict ED return precautions were given for []. Encouraged urgent outpatient follow-up with PMD, dental clinic list provided. Life-threatening processes were considered but are low suspicion at this time, given history, physical exam and ED workup. Pt was educated on all prescription medications and adverse effects. All patient's questions were answered and pt was stable at time of discharge. Life/limb-threatening differential includes but is not limited to, Jarocho's angina, infection (periodontal or peritonsillar abscess, retropharyngeal abscess, Vincents angina, ANUG, pharyngeal/manager project management/buccal space infection), trauma or fracture, dental fracture/subluxation/avulsion, dental bleeding or hemorrhage/DIC, pulpitis, alveolar osteitis or neoplasm I have spoken with the patient and/or caregivers. I explained the patient's condition, diagnoses and treatment plan based on the information available to me at this time. I have answered the patient and/or caregiver's questions and addressed any concerns. The patient and/or caregivers have a good understanding of patient's diagnosis, condition and treatment plan as can be expected at this point. Vital signs have been stable. Patient's condition is stable and appropriate for discharge from the emergency department. Patient will pursue further outpatient evaluation with primary care physician or other designated or consulting physician as outlined in the discharge instructions. The patient and/or caregivers are agreeable to this plan of care and follow-up instructions have been explained in detail. The patient and/or caregivers have received these instructions in written form and have expressed an understanding of the discharge instructions. The patient and/or caregivers are aware that any significant change of condition or worsening of symptoms should prompt immediate return to this or the closest emergency department or call to 911Rosetta Scott Disclaimer: Tyler Disclaimer: This electronic medical record was generated, in whole or in part, using a voice recognition dictation system. Departure Departure: Impression: Primary Impression: Chronic dental pain Additional Impression: Dental caries extending into dentine Disposition: 01 HOME / SELF CARE / HOMELESS Condition: STABLE Referrals: HARDY STEPHENS (PCP) for routine care in 1 week Patient Instructions: Benzocaine mouth gel, ointment, solution, or dental paste, Dental Abscess, Dental Pain Additional Instructions: [facility] EMERGENCY DEPARTMENT GENERAL DISCHARGE INSTRUCTIONS Thank you for coming to [facility] (ED) today and trusting us with you care. We trust that you had a positivie experience in our Emergency Department. If you wish to speak to the department management, you may call the director at [phone]. YOUR FOLLOW UP INSTRUCTIONS ARE FOLLOWS: 1. Do you have a private Doctor? If you do not have a private doctor, please ask for a resource list of physicians or clinics that may be able to assist you with follow up care. 2. The Emergency Physician has interpreted your x-rays. The X-Ray specialist will also review them. If there is a change in the findings, you will be notified in 48 hours when at all possible. 3. A lab test or culture has been done, your results will be reviewed and you will be notified if you need a change in treatment. ADDITIONAL INSTRUCTIONS AND INFORMATION: 1. Your care today has been supervised by a physician who is specially trained in emergency care. Many problems require more than one evaluation for a complete diagnosis and treatment. We recommend that you schedule your follow up appointment as recommended to ensure complete treatment of you illness or injury. If you are unable to obtain follow up care and continue to have a problem, or if your condition worsens, we recommend that you return to the ED. 2. We are not able to safely determine your condition over the phone nor are we able to give sound medical advice over the phone. For these safety reasons, if you call for medical advice we will ask you to come to the ED for further evaluation. 3. If you have any questions regarding these discharge instructions please call the ED at [phone]. SAFETY INFORMATION: In the interest of safety, wellness, and injury prevention; we encourage you to wear your sealbelt, if you smoke; quite smoking, and we encourage family to use a protective helmet for bicycling and other sporting events that present an increased risk for head injury. IF YOUR SYMPTOMS WORSEN OR NEW SYMPTOMS DEVELOP, OR YOU HAVE CONCERNS ABOUT YOUR CONDITION; OR IF YOUR CONDITION WORSENS WHILE YOU ARE WAITING FOR YOUR FOLLOW UP APPOINTMENT; EITHER CONTACT YOUR PRIMARY CARE DOCTOR, THE PHYSICIAN WHOSE NAME AND NUMBER YOU WERE GIVEN, OR RETURN TO THE ED IMMEDIATELY. QI DEMPSEY DO Sep 19, 2020 12:57
--- NOTE | 2020-09-19 14:25 | RAD ---
Exam performed: CT maxillofacial. Indication: Right lower abdominal pain, history of fractured 2017. Date of service: 09/19/2020,Comparison: CT head and maxillofacial from 05/31/2016 Technique: Contiguous acquisitions are obtained through the maxillofacial structures without IV contr ast. Coronal reformatted images are obtained and reviewed. Findings: There is normal aeration of both frontal, ethmoid, maxillary and sphenoid sinuses. No air-fluid leve l, mucoperiosteal thickening or mucus retention cyst is identified. The bony orbital margins and the intraocular contents are bilaterally symmetric and unremarkable. Both ostiomeatal complexes are pres erved. Nasal bones and zygomatic arches are preserved.No abnormal fluid collections or hematoma form ation seen. The visualized portion of the brain is normal. Impression: 1. No acute abnormality seen. Previously seen nondisplaced fractures left ramus of mandible is no areli triston visualized PQRS Compliance Statement: One or more of the following individualized dose reduction techniques were utilized for this examinat ion: 1. Automated exposure control 2. Adjustment of the mA and/or kV according to patient size 3. Use of iterative reconstruction technique Electronically signed by: Mariaelena Reynolds MD (09/19/2020 2:23 PM) [facility]
[2020-09-19] MEDS ORDERED: KETOROLAC 30 MG/ML VIAL. IM ONE (14:45)
== END 2020-09-19 15:15 | disposition home or self-care (01) ==
LOC: ER 12:17
DX: K02.9 Dental caries, unspecified (principal); G89.29 Other chronic pain; J45.909 Unspecified asthma, uncomplicated; F17.210 Nicotine dependence, cigarettes, uncomplicated
CPT/HCPCS: 70486; 99284-25

== ENCOUNTER 2020-12-30 15:34 | Emergency (ER) | payer OTHER ==
[~2020-12-30] VITALS: Ht 180.3 cm; Wt 98.1 kg
[~2020-12-30 15:34] MED LIST changes: +CLIN-95 PO; -CLIN300C9 PO
--- NOTE | 2020-12-30 16:43 | PHYS DOC ---
Past History Past Medical History: Asthma (SHAHLA ALEGRIA APRN) Past Surgical History: Other Additional Past Surgical Histo: JAW REPAIR (SHAHLA ALEGRIA APRN) Smoking: Cigarettes Alcohol Use: None Drug Use: None (SHAHLA ALEGRIA APRN) General Adult EDM: Chief Complaint: COUGH HPI: HPI: Patient is a 30-year-old male who presents to the emergency department for a productive cough and sore throat x2 weeks. Patient reports that his entire family was sick with similar symptoms. He reports that he tested negative for COVID-19 3 weeks ago. No treatment prior to arrival. Patient has a history of asthma. Patient states "I think I have bronchitis". Patient denies shortness of breath, chest pain, fevers, vomiting, loss of taste or smell. (SHAHLA ALEGRIA APRN) Review of Systems: Review of Systems: 14 body systems of the review of systems have been reviewed. See HPI for pertinent positive and negative responses, otherwise all other systems are negative, nonpertinent or noncontributory (SHAHLA ALEGRIA APRN) Allergies: Allergies: Allergies Coded Allergies Type Severity Reaction Last Updated Verified No Known Drug Allergies 10/25/14 No (SHAHLA ALEGRIA APRN) Physical Exam: PE: Constitutional: Well developed, well nourished, no acute distress, non-toxic appearance. [] HENT: Normocephalic, atraumatic, bilateral external ears normal, erythematous oropharynx, no tonsillar enlargement, no drooling, uvula midline, no trismus, no phonation changes, oropharynx moist, no oral exudates, nose normal. [] Eyes: PERRL, EOMI, conjunctiva normal, no discharge. [] Neck: Normal range of motion, no stridor Cardiovascular:Heart rate regular rhythm, no murmur [] Lungs & Thorax: Bilateral breath sounds clear to auscultation [] Abdomen: Soft and flat Skin: Warm, dry, no erythema, no rash. [] Back: Normal range of motion Extremities: No tenderness, no cyanosis, no clubbing, ROM intact, no edema. [] Neurologic: Alert and oriented X 3, normal motor function, normal sensory function, no focal deficits noted. [] Psychologic: Affect normal, judgement normal, mood normal. [] (SHAHLA ALEGRIA APRN) EKG: EKG: [] (SHAHLA ALEGRIA APRN) Radiology/Procedures: Radiology/Procedures: []PROCEDURE: CHEST AP ONLY Site ID: [id number] EXAMINATION: XR CHEST 1V. HISTORY: 30 years Male Reason: COUGH / Spl. Instructions: / History: . . COMPARISON: December 10, 2019. Findings: The lungs are clear. The heart size is normal. There is no effusion or pneumothorax. The mediastinum and connie appear unremarkable. Impression: Unremarkable study. Electronically signed by: Dion Ballard MD (12/30/2020 4:56 PM) [id number] DICTATED AND SIGNED BY: DION BALLARD MD DATE: 12/30/201655 CC: SHAHLA ALEGRIA APRN; HARDY STEPHENS ~MTH0 0 (SHAHLA ALEGRIA APRN) Heart Score: C/O Chest Pain: N/A Risk Factors: Risk Factors: DM, Current or recent (<one month) smoker, HTN, HLP, family history of CAD, obesity. Risk Scores: Score 0 - 3: 2.5% MACE over next 6 weeks - Discharge Home Score 4 - 6: 20.3% MACE over next 6 weeks - Admit for Clinical Observation Score 7 - 10: 72.7% MACE over next 6 weeks - Early Invasive Strategies (SHAHLA ALEGRIA APRN) Course & Med Decision Making: Course & Med Decision Making Pertinent Labs and Imaging studies reviewed. (See chart for details) Patient presents to the emergency department for a productive cough and sore throat x2 weeks. Patient was tested for strep throat and it was positive. A chest x-ray was performed that was negative for any acute findings. He was tested for COVID-19 in the ER will be notified via telephone of those results when they become available. Patient advised to self isolate until he receives these results. Patient has a history of asthma was treated with a DuoNeb. Patient be discharged home with cough medication. He was advised to follow-up with his primary care provider. He was advised to continue his asthma medications at home. I discussed with patient all findings and diagnostic testing as well as the need to follow-up with PCP for further evaluation and treatment or return to the ER if any new or worsening symptoms. Strict return precautions were also discussed at length. Patient voiced understanding and agreement with the plan. Patient is hemodynamically stable at the time of disposition. (SHAHLA ALEGRIA APRN) Dragon Disclaimer: Dragon Disclaimer: This electronic medical record was generated, in whole or in part, using a voice recognition dictation system. (SHAHLA ALEGRIA APRN) Attending Co-Sign The patient was seen and interviewed as well as examined at the bedside. The chart was reviewed. The case was discussed. Agree with the plan of care. (ARLINE MENSAH DO) Departure Departure: Impression: Primary Impression: Person under investigation for COVID-19 Additional Impression: Strep pharyngitis Disposition: HOME / SELF CARE / HOMELESS Condition: GOOD Referrals: HARDY STEPHENS (PCP) Patient Instructions: Strep Throat Additional Instructions: You were seen in the emergency department today for cough and a sore throat. Your rapid strep test in the emergency department was positive. You will be treated with an antibiotic. Please start and finish it completely. You can take Tylenol and ibuprofen for pain at home. Salt water gargles may help with your throat pain. Please get a new toothbrush to avoid reinfection. You were tested in the emergency department today for COVID-19. You will be notified via telephone of your results in approximately 2 days when they become available. Please self isolate until you receive these results. Follow-up with your primary care provider within the week if your symptoms persist. Return to the emergency department if you develop shortness of breath, chest pain, inability to swallow, intractable nausea or vomiting, high fevers refractory to treatment or any new or worsening concerns. EMERGENCY DEPARTMENT GENERAL DISCHARGE INSTRUCTIONS Thank you for coming to [facility] (ED) today and trusting us with you care. We trust that you had a positivie experience in our Emergency Department. If you wish to speak to the department management, you may call the director at [phone]. YOUR FOLLOW UP INSTRUCTIONS ARE FOLLOWS: 1. Do you have a private Doctor? If you do not have a private doctor, please ask for a resource list of physicians or clinics that may be able to assist you with follow up care. 2. The Emergency Physician has interpreted your x-rays. The X-Ray specialist will also review them. If there is a change in the findings, you will be notified in 48 hours when at all possible. 3. A lab test or culture has been done, your results will be reviewed and you will be notified if you need a change in treatment. ADDITIONAL INSTRUCTIONS AND INFORMATION: 1. Your care today has been supervised by a physician who is specially trained in emergency care. Many problems require more than one evaluation for a complete diagnosis and treatment. We recommend that you schedule your follow up appointment as recommended to ensure complete treatment of you illness or injury. If you are unable to obtain follow up care and continue to have a problem, or if your condition worsens, we recommend that you return to the ED. 2. We are not able to safely determine your condition over the phone nor are we able to give sound medical advice over the phone. For these safety reasons, if you call for medical advice we will ask you to come to the ED for further evaluation. 3. If you have any questions regarding these discharge instructions please call the ED at [phone]. SAFETY INFORMATION: In the interest of safety, wellness, and injury prevention; we encourage you to wear your sealbelt, if you smoke; quite smoking, and we encourage family to use a protective helmet for bicycling and other sporting events that present an increased risk for head injury. IF YOUR SYMPTOMS WORSEN OR NEW SYMPTOMS DEVELOP, OR YOU HAVE CONCERNS ABOUT YOUR CONDITION; OR IF YOUR CONDITION WORSENS WHILE YOU ARE WAITING FOR YOUR FOLLOW UP APPOINTMENT; EITHER CONTACT YOUR PRIMARY CARE DOCTOR, THE PHYSICIAN WHOSE NAME AND NUMBER YOU WERE GIVEN, OR RETURN TO THE ED IMMEDIATELY. Scripts Promethazine HCl/Codeine (Prometh-Codein 6.25-10 mg/5 ml) 5 Ml Syrup 5 ML PO PRN Q4-6HRS PRN for cough MDD 30 Milliliter(s), #120 ML 0 Refills Prov: SHAHLA ALEGRIA APRN 12/30/20 Amoxicillin (AMOXICILLIN) 500 Mg Capsule 1 CAP PO BID for strep throat for 10 Days, #20 CAP 0 Refills Prov: SHAHLA ALEGRIA APRN 12/30/20 SHAHLA ALEGRIA APRN Dec 30, 2020 16:43 ARLINE MENSAH DO Dec 31, 2020 05:55
[2020-12-30] MEDS ORDERED: IPRATRPIUM/ALBUTEROL 0.5/2.5MG 3 ML NEBU. NEB ONE (16:45)
--- NOTE | 2020-12-30 16:59 | RAD ---
Site ID: [id number] EXAMINATION: XR CHEST 1V. HISTORY: 30 years Male Reason: COUGH / Spl. Instructions: / History: . . COMPARISON: December 10, 2019. Findings: The lungs are clear. The heart size is normal. There is no effusion or pneumothorax. The mediastinum and connie appear unremarkable. Impression: Unremarkable study. Electronically signed by: Noe Ballard MD (12/30/2020 4:56 PM) [id number]
[2020-12-30 17:51] VITALS: BP 147/106
[2020-12-30] MEDS ORDERED: AMOX500C PO (18:04)
[2020-12-30] MEDS ORDERED: PROM5SYR2 PO (18:45)
== END 2020-12-30 18:46 | disposition home or self-care (01) ==
LOC: ER 15:34
DX: J02.8 Acute pharyngitis due to other specified organisms (principal); J45.909 Unspecified asthma, uncomplicated; Z20.822 Contact with and (suspected) exposure to COVID-19
CPT/HCPCS: 71045; 94640; 99284; C9803; U0003

== ENCOUNTER 2021-03-11 13:54 | Emergency (ER) | payer OTHER ==
[~2021-03-11] VITALS: Ht 180.3 cm; Wt 102.2 kg
[~2021-03-11 13:54] MED LIST changes: +AMOX500C PO; +PROM5SYR2 PO
[2021-03-11] MEDS ORDERED: AMOX1TAB61 PO (15:04)
[2021-03-11] MEDS ORDERED: PROM5SYR2 PO (15:04)
[2021-03-11] MEDS ORDERED: BENZ-8 PO (15:04)
[2021-03-11] MEDS ORDERED: ALBU2.5V8 IH (15:04)
[2021-03-11] MEDS ORDERED: PRED50TA PO (15:04)
--- NOTE | 2021-03-11 15:06 | PHYS DOC ---
Past History Past Medical History: Asthma Additional Past Medical Histor: PTSD; ADHD; brain bleed (MOIRA PHILIPPE Nitza MEDICAL ADMINISTRATIVE SPECIALIST) Past Surgical History: Other Additional Past Surgical Histo: JAW REPAIR (CAMERONMOIRA Dominguez MEDICAL ADMINISTRATIVE SPECIALIST) Smoking: Cigarettes Alcohol Use: None Drug Use: None (JOSE MARTINMOIRA MEDICAL ADMINISTRATIVE SPECIALIST) Adult General Chief Complaint Chief Complaint: CONGESTION HPI HPI Patient is a 30-year-old male patient presenting to the ED today complaining of cough, nasal congestion, symptoms began 2 weeks ago. Patient states the nasal congestion has gotten worse with difficulty breathing from the left nasal cavity, he also states he has sore throat since yesterday. He states he was started on a nasal spray by the PCP with no improvement. Denies any fever. Denies any concerns for COVID19. States he received his last Covid vaccine in August 2020. (JOSE MARTINMOIRA Nitza MEDICAL ADMINISTRATIVE SPECIALIST) Review of Systems Review of Systems Constitutional: Denies fever or chills [] Eyes: Denies change in visual acuity, redness, or eye pain [] HENT: Reports sore throat and nasal congestion Respiratory: Reports cough, denies shortness of breath [] Cardiovascular: No additional information not addressed in HPI [] GI: Denies abdominal pain, nausea, vomiting, bloody stools or diarrhea [] : Denies dysuria or hematuria [] Musculoskeletal: Denies back pain or joint pain [] Integument: Denies rash or skin lesions [] Neurologic: Denies headache, focal weakness or sensory changes [] All other systems were reviewed and found to be within normal limits, except as documented in this note. (MOIRA PHILIPPE MEDICAL ADMINISTRATIVE SPECIALIST) Allergies Allergies Allergies Coded Allergies Type Severity Reaction Last Updated Verified No Known Drug Allergies 03/11/21 No (CAMERONMOIRA Dominguez MEDICAL ADMINISTRATIVE SPECIALIST) Physical Exam Physical Exam Constitutional: Well developed, well nourished, no acute distress, non-toxic appearance. [] HENT: Normocephalic, atraumatic, bilateral external ears normal, oropharynx moist, no oral exudates, patient sounds congested nasally, bilateral nasal turbinates are boggy and erythematous worse on the left side, mild maxillary sinus tenderness Eyes: PERRLA, EOMI, conjunctiva normal, no discharge. [] Neck: Normal range of motion, no tenderness, supple, no stridor. [] Cardiovascular:Heart rate regular rhythm, no murmur [] Lungs & Thorax: Bilateral breath sounds clear to auscultation [] Abdomen: Bowel sounds normal, soft, no tenderness, no masses, no pulsatile masses. [] Skin: Warm, dry, no erythema, no rash. [] Back: No tenderness, no CVA tenderness. [] Extremities: No tenderness, no cyanosis, no clubbing, ROM intact, no edema. [] Neurologic: Alert and oriented X 3, normal motor function, normal sensory function, no focal deficits noted. [] Psychologic: Affect normal, judgement normal, mood normal. [] (MOIRA PHILIPPE APRN) Current Patient Data Vital Signs Vital Signs Date Time Temp Pulse Resp B/P (MAP) Pulse Ox O2 Delivery O2 Flow Rate FiO2 03/11/21 14:19 98.8 83 18 119/63 (81) 97 Room Air (MOIRA PHILIPPE APRN) EKG EKG [] (MOIRA PHILIPPE APRN) Radiology/Procedures Radiology/Procedures [] (MOIRA PHILIPPE APRN) Heart Score C/O Chest Pain: N/A Risk Factors: Risk Factors: DM, Current or recent (<one month) smoker, HTN, HLP, family history of CAD, obesity. Risk Scores: Risk Factors: DM, Current or recent (<one month) smoker, HTN, HLP, family history of CAD, obesity. (MOIRA PHILIPPE APRN) Course & Med Decision Making Course & Med Decision Making Pertinent Labs and Imaging studies reviewed. (See chart for details) This is a 30-year-old male patient with symptoms suspicious of bronchitis and sinusitis. Discharged on augmenting, albuterol inhaler, as well as cough remedies. Follow-up with primary care doctor in 1 week. Encouraged to continue using the nasal spray for couple more days. (MOIRA PHILIPPE APRN) Dragon Disclaimer Dragon Disclaimer This electronic medical record was generated, in whole or in part, using a voice recognition dictation system. (MOIRA PHILIPPE APRN) Attending Co-Sign The patient was seen and interviewed as well as examined at the bedside. The chart was reviewed. The case was discussed. Agree with the plan of care. (ARLINE MENSAH DO) Departure Departure: Impression: Primary Impression: Acute sinusitis Additional Impression: Acute bronchitis Disposition: HOME / SELF CARE / HOMELESS Condition: STABLE Referrals: HARDY STEPHENS (PCP) follow up in one week Patient Instructions: Acute Bronchitis, Sinusitis Additional Instructions: You were evaluated in the emergency room with symptoms suspicious of bronchitis and a sinus infection. Continue using the nasal spray you got from your primary care doctor. Use the rest of the prescribed indications as ordered. Follow-up with your doctor in 1 to 2 weeks Scripts Promethazine HCl/Codeine (Prometh-Codein 6.25-10 mg/5 ml) 5 Ml Syrup 5 ML PO PRN Q4-6HRS PRN for cough MDD 30 Milliliter(s), #120 ML 0 Refills Prov: MOIRA PHILIPPE APRN 03/11/21 Albuterol Sulfate (VENTOLIN HFA INHALER) 18 Gm Hfa.aer.ad 1 PUFF IH PRN Q4HRS PRN for FOR ASTHMA, #1 EACH 0 Refills Prov: MOIRA PHILIPPE APRN 03/11/21 Benzonatate (BENZONATATE) 100 Mg Capsule 1 CAP PO TID, #30 CAP Prov: MOIRA PHILIPPE APRN 03/11/21 Prednisone (PREDNISONE) 50 Mg Tablet 1 TAB PO DAILY, #5 TAB Prov: MOIRA PHILIPPE APRN 03/11/21 Amoxicillin/Potassium Clav (AUGMENTIN 875-125 TABLET) 1 Each Tablet 1 TAB PO BID for 10 Days, #20 TAB 0 Refills Prov: MOIRA PHILIPPE APRN 03/11/21 Problem Qualifiers Primary Impression: Acute sinusitis Sinusitis location: maxillary Recurrence: non-recurrent Qualified Codes: J01.00 - Acute maxillary sinusitis, unspecified Additional Impression: Acute bronchitis Bronchitis organism: unspecified organism Qualified Codes: J20.9 - Acute bronchitis, unspecified MOIRA PHILIPPE APRN Mar 11, 2021 15:06 ARLINE MENSAH DO Mar 13, 2021 06:09
[2021-03-11 15:35] VITALS: BP 121/87
== END 2021-03-11 15:37 | disposition home or self-care (01) ==
LOC: ER 13:54
DX: J01.90 Acute sinusitis, unspecified (principal); J20.9 Acute bronchitis, unspecified; J45.909 Unspecified asthma, uncomplicated; F17.210 Nicotine dependence, cigarettes, uncomplicated
CPT/HCPCS: 99283

== ENCOUNTER 2021-03-17 11:23 | Emergency (ER) | payer OTHER ==
[~2021-03-17] VITALS: Ht 180.3 cm; Wt 102.2 kg
[~2021-03-17 11:23] MED LIST changes: +ALBU2.5V8 IH; +AMOX1TAB61 PO
[2021-03-17 11:42] VITALS: BP 148/88
[2021-03-17] MEDS ORDERED: ONDANSETRON ODT 4 MG TAB.RAPDIS PO ONE (12:30)
[2021-03-17] MEDS ORDERED: KETOROLAC 60 MG/2 ML VIAL. IM ONE (12:30)
--- NOTE | 2021-03-17 12:37 | PHYS DOC ---
Past History Past Medical History: Asthma Additional Past Medical Histor: PTSD; ADHD; brain bleed Past Surgical History: Other Additional Past Surgical Histo: JAW REPAIR Smoking: Cigarettes Alcohol Use: None Drug Use: None General Adult EDM: Chief Complaint: COUGH HPI: HPI: Patient is a 30 year old male who presents with persistent nasal congestion, cough and nausea. Patient was seen in the department about a week ago and diagnosed with acute sinusitis. Patient reports his symptoms have not improved. He is requesting refill of his nighttime cough syrup as well as something for nausea. Patient states his last dose of ibuprofen was yesterday evening, and that he has been taking all other medications as prescribed. Review of Systems: Review of Systems: Constitutional: Denies fever or chills Eyes: Denies change in visual acuity or visual field deficits HENT: See HPI Respiratory: See HPI Cardiovascular: Denies chest pain or edema GI: See HPI : Denies dysuria or hematuria Musculoskeletal: Denies back pain or joint pain Integument: Denies rash or other skin lesions Current Medications: Current Meds: Current Medications Medications (Trade) Dose Ordered Sig/Darleen Start Time Stop Time Status Last Admin Dose Admin Ketorolac Tromethamine (Toradol Im) 60 mg 1X ONCE 03/17/21 12:30 03/17/21 12:31 UNV Ondansetron HCl (Zofran Odt) 4 mg 1X ONCE 03/17/21 12:30 03/17/21 12:31 UNV Allergies: Allergies: Allergies Coded Allergies Type Severity Reaction Last Updated Verified No Known Drug Allergies 03/11/21 No Physical Exam: PE: Constitutional: Well developed, well nourished, no acute distress, non-toxic appearance. HENT: Normocephalic, atraumatic, bilateral external ears without deformity or discharge, oropharynx moist, no oral exudates, bilateral turbinates swollen. Eyes: PERRLA, EOMI, conjunctiva normal, no discharge. Neck: Normal range of motion, no tenderness, no LAD. Cardiovascular: Heart rate regular rhythm, no murmur. Lungs & Thorax: Breath sounds symmetrical and without wheezes, rales or rhonchi in all lung mil[place]. Abdomen: Bowel sounds normal, soft, no tenderness, no masses, no pulsatile masses. Skin: Warm, dry, no erythema, no rash. Current Patient Data: Labs: Laboratory Tests Test 03/17/21 13:05 Influenza Type A (Rapid) Negative (NEGATIVE) Influenza Type B (Rapid) Negative (NEGATIVE) Vital Signs: Vital Signs Date Time Temp Pulse Resp B/P (MAP) Pulse Ox O2 Delivery O2 Flow Rate FiO2 03/17/21 13:51 80 18 100 Room Air 03/17/21 11:42 98.1 101 20 148/88 (108) 97 Room Air Heart Score: C/O Chest Pain: No Course & Med Decision Making: Course & Med Decision Making Pertinent Labs and Imaging studies reviewed. (See chart for details) Patient is a 30-year-old male who was diagnosed with an acute sinus infection a week ago. He states that his symptoms are persistent and is requesting a refill of his cough medication as well as an additional medication for associated nausea. Patient has not yet been tested for Covid or flu since the symptoms began. Work-up today will include swabs for influenza A&B as well as COVID-19. Swabs for influenza were negative. PCR has yet to result. Patient will be given discharge instructions to quarantine until PCR becomes available. He is also provided with return precautions. Patient can follow-up with his primary care provider as well as contact the ENT for further evaluation and management. Patient understands and is agreeable to discharge plan. Dragon Disclaimer: Dragon Disclaimer: This electronic medical record was generated, in whole or in part, using a voice recognition dictation system. Departure Departure: Impression: Primary Impression: Acute sinusitis with symptoms > 10 days Additional Impressions: Refractory sinusitis Person under investigation for COVID-19 Disposition: 01 HOME / SELF CARE / HOMELESS Condition: STABLE Referrals: HARDY STEPHENS (PCP) MYNOR LEVY DO Patient Instructions: Sinusitis, [id number] Additional Instructions: You should contact Dr. Irvin, who is an ear/nose/throat specialist regarding your persistent nasal complaints. They can further evaluate and treat your symptoms. Follow the following supportive treatment measures: - Cool mist humidifier with plain water at bedside while you sleep - Mucinex (guaifenesin) per box instructions - Promethazine/codeine syrup for cough, especially at night before bed - Alternate ibuprofen and acetaminophen every four hours for body aches/fever/headache - Continue any treatments advised by your primary care doctor If antibiotics were prescribed, take them as directed. You have been tested for or diagnosed with COVID-19 infection. It is an infection caused by a new type of coronavirus. COVID-19 will cause cold-like or mild flu symptoms in most. It can cause more severe symptoms like problems breathing in some. There is no treatment for COVID-19. The body will clear the infection over time. Self-care will help to ease discomfort. Steps to Take: - Rest as needed. - Choose healthy foods including fruits and vegetables. Drink water throughout the day. - Get plenty of sleep each night. - If you smoke, try to quit. It may ease breathing. - Avoid alcohol. - Keep Others Healthy - The virus can spread to others. Droplets are released every time you sneeze or cough. The droplets can get into the mouth, nose, or eyes of people near you and lead to infection. To lower the chances of spreading COVID-19 to others: Stay at home until your doctor has said it is safe to leave. If you tested positive this will mean staying isolated until both of the following are true: - At least 7 days have passed since the start of illness. - You are free of fever for at least 72 hours without the use of medicine. During this time: - Avoid public areas, events, or transportation. Do not return to work or school until your doctor has said it is safe to do so. - Call ahead if you need to go to a medical center. Let them know you may have COVID-19. It will help them guide you where to go. They may also ask you to wear a facemask when you come to the office. - If you call for emergency medical services, let them know you may have COVID- 19. While at home: - Try to avoid close contact with others. Stay about 6 feet away. - If possible, spend most of your time in a separate room from others. - Use a face mask if you will be in close contact with others such as sharing a room or vehicle. - Have someone wipe down common surfaces in the home. Use household technical communicator every day on areas like doorknobs, counters, or sinks. - Cough or sneeze into a tissue. Throw the tissue away right after use. If a tissue is not available, cough or sneeze into your elbow. - Wash your hands often. Wash them after sneezing or coughing. Use soap and water and wash or at least 20 seconds. Alcohol based hand saw cleaner can be used if soap and water is not available. - Do not prepare food for others. Avoid sharing personal items like forks, spoons, or toothbrushes. - Avoid close contact with pets while you are sick. There is no evidence of the virus passing to pets. This is a safety step until more is known about this virus. - Isolation can be frustrating. Social interaction can help. Keep in touch with friends and family through phone and tech options. You can still interact with others in your home, just keep a safe distance of about 6 feet. Follow-up: - Your doctors office will check in with you to see if there are any changes in your health. - You may be asked to keep track of symptoms to share with them. They will also let you know when you are clear to be in public again. Contact your doctor if your recovery is not going as you expect. Get emergency care if you have problems such as: - Trouble breathing with oxygen saturation <90% - Nonstop chest pain or pressure - Changes in awareness, confusion, or problems waking - Lips or face have bluish color - Worsening of symptoms If you think you have an emergency, call for emergency medical services right away. As taken from [employer] [facility] Ondansetron (ONDANSETRON ODT) 4 Mg Tab.rapdis 1 TAB PO PRN Q6-8HRS for n/v, #20 TAB Prov: OBED MONIQUE 03/17/21 Promethazine HCl/Codeine (Prometh-Codein 6.25-10 mg/5 ml) 5 Ml Syrup 10 ML PO PRN QHS PRN for cough MDD 10 Milliliter(s), #240 ML 0 Refills Prov: OBED MONIQUE 03/17/21 OBED MONIQUE Mar 17, 2021 12:37
[2021-03-17] MEDS ORDERED: ONDA4TAB12 PO (12:45)
[2021-03-17] MEDS ORDERED: PROM5SYR2 PO (12:45)
[2021-03-17 13:40] LABS: INFLUENZA A PATIENT NEGATIVE (NEGATIVE); INFLUENZA B PATIENT NEGATIVE (NEGATIVE)
== END 2021-03-17 13:52 | disposition home or self-care (01) ==
LOC: ER 11:44
DX: J01.90 Acute sinusitis, unspecified (principal); J45.909 Unspecified asthma, uncomplicated; F17.210 Nicotine dependence, cigarettes, uncomplicated; Z20.822 Contact with and (suspected) exposure to COVID-19
CPT/HCPCS: 87804; 96372; 99283; C9803; J1885; Q0162; U0003

== ENCOUNTER 2021-03-27 13:06 | Emergency (ER) | payer OTHER ==
[~2021-03-27] VITALS: Ht 180.3 cm; Wt 100.0 kg
[~2021-03-27 13:06] MED LIST changes: +ONDA4TAB12 PO
[2021-03-27 14:05] VITALS: BP 149/99
[2021-03-27 14:49] LABS: INFLUENZA A PATIENT NEGATIVE (NEGATIVE); INFLUENZA B PATIENT NEGATIVE (NEGATIVE)
[2021-03-27] MEDS ORDERED: TRAM50TA PO (15:12)
[2021-03-27] MEDS ORDERED: PROM118S10 PO (15:12)
[2021-03-27] MEDS ORDERED: AMOX1TAB61 PO (15:12)
--- NOTE | 2021-03-27 15:15 | PHYS DOC ---
Past History Past Medical History: Asthma Additional Past Medical Histor: PTSD; ADHD; brain bleed Past Surgical History: Other Additional Past Surgical Histo: jaw surgery Smoking: Cigarettes Alcohol Use: None Drug Use: None General Adult EDM: Chief Complaint: NAUSEA/VOMITING/DIARRHEA HPI: HPI: 30-year-old male presents with facial pain and sinus congestion. He has had sinus congestion for a couple of weeks. He is also had a cough and other URI symptoms. He has tested negative for COVID-19 but has had exposures in his family. He is most concerned with the coughing and a facial pressure. He was prescribed promethazine with codeine but he states it is too strong and he was wondering if there is a less potent dose. He also did not know if there was a way to do something for the facial pain that is not cough medicine. He would like promethazine liquid without codeine. Review of Systems: Review of Systems: Constitutional: Denies fever or chills Eyes: Denies change in visual acuity HENT: Nasal congestion, facial pain Respiratory: Cough without shortness of breath Cardiovascular: Denies chest pain or edema GI: Denies abdominal pain, nausea, vomiting, bloody stools or diarrhea : Denies dysuria Musculoskeletal: Denies back pain or joint pain Integument: Denies rash Neurologic: Denies headache, focal weakness or sensory changes Endocrine: Denies polyuria or polydipsia Lymphatic: Denies swollen glands Psychiatric: Denies depression or anxiety Allergies: Allergies: Allergies Coded Allergies Type Severity Reaction Last Updated Verified No Known Drug Allergies 03/27/21 No Physical Exam: PE: Constitutional: Well developed, well nourished, no acute distress, non-toxic appearance. [] HENT: Normocephalic, atraumatic, bilateral external ears normal, maxillary sinus tenderness bilaterally, oropharynx moist, no oral exudates, nose normal. [] Eyes: PERRLA, EOMI, conjunctiva normal, no discharge. [] Neck: Normal range of motion, no tenderness, supple, no stridor. [] Cardiovascular: Heart rate regular rhythm, no murmur [] Lungs & Thorax: Bilateral breath sounds clear to auscultation [] Abdomen: Bowel sounds normal, soft, no tenderness, no masses, no pulsatile masses. [] Skin: Warm, dry, no erythema, no rash. [] Back: No tenderness, no CVA tenderness. [] Extremities: No tenderness, no cyanosis, no clubbing, ROM intact, no edema. [] Neurologic: Alert and oriented X 3, normal motor function, normal sensory function, no focal deficits noted. [] Psychologic: Affect normal, judgement normal, mood normal. [] Current Patient Data: Labs: Laboratory Tests Test 03/27/21 14:13 Influenza Type A (Rapid) Negative (NEGATIVE) Influenza Type B (Rapid) Negative (NEGATIVE) SARS-CoV-2 Antigen (Rapid) Negative (NEGATIVE) Vital Signs: Vital Signs Date Time Temp Pulse Resp B/P (MAP) Pulse Ox O2 Delivery O2 Flow Rate FiO2 03/27/21 14:05 98.1 83 18 149/99 (116) 95 Room Air EKG: EKG: [] Radiology/Procedures: Radiology/Procedures: [] Heart Score: C/O Chest Pain: N/A Risk Factors: Risk Factors: DM, Current or recent (<one month) smoker, HTN, HLP, family history of CAD, obesity. Risk Scores: Score 0 - 3: 2.5% MACE over next 6 weeks - Discharge Home Score 4 - 6: 20.3% MACE over next 6 weeks - Admit for Clinical Observation Score 7 - 10: 72.7% MACE over next 6 weeks - Early Invasive Strategies Course & Med Decision Making: Course & Med Decision Making Pertinent Labs and Imaging studies reviewed. (See chart for details) And concern the patient has a sinus infection. I will treat him with Augmentin. I will also give him promethazine liquid and a short course of tramadol purely for pain. I will also give him Zofran for home. Patient is negative for influenza and COVID. Patient has talked about some nausea and the possibility of constipation so I ordered a KUB. The patient does not have extreme constipation. Advised that he take MiraLAX for a few days. He is stable for discharge at this time. [] Dragon Disclaimer: Tyler Disclaimer: This electronic medical record was generated, in whole or in part, using a voice recognition dictation system. Departure Departure: Impression: Primary Impression: Acute sinusitis Disposition: HOME / SELF CARE / HOMELESS Condition: STABLE Referrals: HARDY STEPHENS (PCP) Patient Instructions: Sinusitis, [id number] Scripts Tramadol Hcl (TRAMADOL HCL) 50 Mg Tablet 50 MG PO BID PRN for PAIN, #12 TAB Prov: ARLINE MENSAH DO 03/27/21 Amoxicillin/Potassium Clav (AUGMENTIN 875-125 TABLET) 1 Each Tablet 1 TAB PO BID for sinus infection for 7 Days, #14 TAB 0 Refills Prov: ARLINE MENSAH DO 03/27/21 D-Methorphan Hb/Prometh Hcl (PROMETHAZINE-DM SYRUP) 118 Ml Syrup 5 ML PO PRN Q6HRS PRN for cough for 6 Days, #120 ML 0 Refills Prov: ARLINE MENSAH DO 03/27/21 ARLINE MENSAH DO Mar 27, 2021 15:15
--- NOTE | 2021-03-27 15:30 | RAD ---
Supine abdomen. HISTORY: Constipation Supine view was taken of the abdomen. There is no bowel obstruction. Bowel pattern is unremarkable. T here is not an abnormal amount of stool in colon. There are no abnormal calcifications. IMPRESSION: 1. Negative abdomen. Electronically signed by: Champ Ferraro MD (03/27/2021 3:28 PM) [facility]
== END 2021-03-27 15:19 | disposition home or self-care (01) ==
LOC: ER 13:06
DX: J01.90 Acute sinusitis, unspecified (principal); J45.909 Unspecified asthma, uncomplicated; F43.10 Post-traumatic stress disorder, unspecified; Z20.822 Contact with and (suspected) exposure to COVID-19
CPT/HCPCS: 74018; 87428; 99284

== ENCOUNTER 2021-04-14 11:28 | Emergency (ER) | payer SELFPAY ==
[~2021-04-14] VITALS: Ht 180.3 cm; Wt 100.0 kg
[~2021-04-14 11:28] MED LIST changes: +TRAM50TA PO
[2021-04-14 12:08] VITALS: BP 111/83
[2021-04-14] MEDS ORDERED: PROM25TA10 PO (12:47)
[2021-04-14] MEDS ORDERED: AMOX1TAB61 PO (12:47)
--- NOTE | 2021-04-14 12:47 | PHYS DOC ---
Past History Past Medical History: Asthma Additional Past Medical Histor: PTSD; ADHD; brain bleed (AWILDA BEAN APRN) Past Surgical History: Other Additional Past Surgical Histo: jaw surgery (AWILDA BEAN APRN) Smoking: Cigarettes Alcohol Use: None Drug Use: None (AWILDA BEAN APRN) General Adult EDM: Chief Complaint: CONGESTION HPI: HPI: Patient is a 30-year-old male that presents today with nasal congestion and facial pain. Patient states for last 3 to 4 days and he says that he has been running a fever but is unsure of how high it is, he also states he has been unable to keep any fluids down or food he has been taking Zofran for nausea as well and he also states that he has lost over 15 pounds. Patient is also requesting "DM "cough medicine to help with the nausea and the cough. Patient does state he has a primary care physician Dr. Mccrary for which she has not seen for this condition. Patient's past medical records were reviewed it looks like he is here for his fourth visit in the last 6 months for sinus congestion for which she has received Augmentin and every visit. (AWILDA BEAN APRN) Review of Systems: Review of Systems: Constitutional: Fever and chills Eyes: Denies change in visual acuity HENT: Nasal congestion denies sore throat Respiratory: Denies cough or shortness of breath Cardiovascular: Denies chest pain or edema GI: Nausea denies abdominal pain, vomiting, bloody stools or diarrhea : Denies dysuria Musculoskeletal: Denies back pain or joint pain Integument: Denies rash Neurologic: Denies headache, focal weakness or sensory changes Endocrine: Denies polyuria or polydipsia Lymphatic: Denies swollen glands Psychiatric: Denies depression or anxiety (AWILDA BEAN APRN) Allergies: Allergies: Allergies Coded Allergies Type Severity Reaction Last Updated Verified No Known Drug Allergies 03/27/21 No (AWILDA BEAN APRN) Physical Exam: PE: Constitutional: Well developed, well nourished, no acute distress, non-toxic appearance. [] HENT: Normocephalic, atraumatic, bilateral external ears normal, oropharynx moist Reddin noted, no oral exudates, nose nares are reddened, facial pain noted with palpation over the maxillary sinuses. [] Eyes: PERRLA, EOMI, conjunctiva normal, no discharge. [] Neck: Normal range of motion, no tenderness, supple, no stridor. [] Cardiovascular:Heart rate regular rhythm, no murmur [] Lungs & Thorax: Bilateral breath sounds clear to auscultation [] Abdomen: Bowel sounds normal, soft, no tenderness, no masses, no pulsatile han s. [] Skin: Warm, dry, no erythema, no rash. [] Back: No tenderness, no CVA tenderness. [] Extremities: No tenderness, no cyanosis, no clubbing, ROM intact, no edema. [] Neurologic: Alert and oriented X 3, normal motor function, normal sensory function, no focal deficits noted. [] Psychologic: Affect normal, judgement normal, mood normal. [] (AWILDA BEAN APRN) Current Patient Data: Vital Signs: Vital Signs Date Time Temp Pulse Resp B/P (MAP) Pulse Ox O2 Delivery O2 Flow Rate FiO2 04/14/21 12:08 98.4 65 16 111/83 (92) 98 Room Air (AWILDA BEAN APRN) EKG: EKG: [] (AWILDA BEAN APRN) Radiology/Procedures: Radiology/Procedures: [] (AWILDA BEAN APRN) Heart Score: C/O Chest Pain: N/A Risk Factors: Risk Factors: DM, Current or recent (<one month) smoker, HTN, HLP, family history of CAD, obesity. Risk Scores: Score 0 - 3: 2.5% MACE over next 6 weeks - Discharge Home Score 4 - 6: 20.3% MACE over next 6 weeks - Admit for Clinical Observation Score 7 - 10: 72.7% MACE over next 6 weeks - Early Invasive Strategies (AWILDA BEAN APRN) Course & Med Decision Making: Course & Med Decision Making Pertinent Labs and Imaging studies reviewed. (See chart for details) Patient assessed and appears nontoxic in appearance his heart rate is currently 65 and his temperature is within normal limits, patient is requesting the cough medicine promethazine with DM, patient has been informed that I will not be prescribing that for him I will give him promethazine by mouth in the tablet form to help with his nausea, patient will also be prescribed Augmentin 875 mg to be taken twice daily for 10 full days, patient has been informed to take [id number] nasal decongestions that can be found behind the pharmacy desk, patient is also been informed to take Flonase 2 sprays each nare twice daily, also Afrin nasal spray 2 sprays each nare x3 days only. Patient is to follow-up with Dr. Mccrary in the next 3 to 5 days for further management of his sinus condition, due to patient's chronic sinus infections over the last year he may need to follow-up with the ENT specialist which can be done through his primary care physician's office. (AWILDA BEAN APRN) Course & Med Decision Making I was the Attending physician on the above date of service of this patient. This patient was evaluated, examined, treated, and dispositioned from the emergency department by the mid-level practitioner. Although I was working at the time , no assistance was requested. Electronically signed, Mario Voss DO (MARIO VOSS DO) Tyler Disclaimer: Tyler Disclaimer: This electronic medical record was generated, in whole or in part, using a voice recognition dictation system. (AWILDA BEAN APRN) Departure Departure: Impression: Primary Impression: Acute sinusitis Qualified Codes: J01.01 - Acute recurrent maxillary sinusitis Additional Impressions: Nausea Drug-seeking behavior Disposition: HOME / SELF CARE / HOMELESS Condition: STABLE Referrals: HARDY MCCRARY (PCP) Patient Instructions: Sinus Headache, Bwkw-py-Towd Additional Instructions: Augmentin take 1 tablet twice daily for 10 full days Promethazine take 1 tablet every 6 hours as needed for nausea. [id number]-mec-gunmlzh nasal decongestants to help with nasal congestion Flonase 2 sprays each side of the nose twice daily Afrin 2 sprays each side of the nose once daily for 3 days Continue all your other home medications including her inhalers Follow-up with your primary care physician in 3 to 5 days for further management of your sinus infection, due to the fact that you have had multiple sinus factions in the last year you may want to follow-up for an ENT evaluation. Scripts Promethazine Hcl (PROMETHAZINE HCL) 25 Mg Tablet 1 TAB PO PRN Q6HRS for nausea, #20 TAB Prov: AWILDA BEAN [employer]URAL ENGINEER 04/14/21 Amoxicillin/Potassium Clav (AUGMENTIN 875-125 TABLET) 1 Each Tablet 1 TAB PO BID for sinusitis for 10 Days, #20 TAB 0 Refills Prov: AWILDA BEAN [employer]JECT STRU[employer]URAL ENGINEER 04/14/21 AWILDA BEAN APRN Apr 14, 2021 12:47 MARIO VOSS DO Apr 16, 2021 20:02
== END 2021-04-14 12:56 | disposition home or self-care (01) ==
LOC: ER 11:28
DX: J01.01 Acute recurrent maxillary sinusitis (principal); R11.0 Nausea; Z76.5 Malingerer [conscious simulation]; J45.909 Unspecified asthma, uncomplicated; F43.10 Post-traumatic stress disorder, unspecified; F90.9 Attention-deficit hyperactivity disorder, unspecified type; F17.210 Nicotine dependence, cigarettes, uncomplicated
CPT/HCPCS: 99283